=== PATIENT | female | born 1945 | race Caucasian/White ===

== ENCOUNTER 2018-05-03 16:55 | Emergency (ER) | payer OTHER ==
[~2018-05-03] VITALS: Ht 160 cm; Wt 71.2 kg
--- NOTE | 2018-05-03 17:12 | ED CARDIAC/CP/PALPITATIONS ---
History of Present Illness General Chief Complaint: Chest Pain Stated Complaint: CHEST PRESSURE/UPPER BACK DISCOMFORT Source: patient Exam Limitations: no limitations Vital Signs & Intake/Output Vital Signs & Intake/Output Vital Signs Date Time Temp Pulse Resp B/P B/P Pulse O2 O2 Flow FiO2 Mean Ox Delivery Rate 05/03 2138 98.4 86 16 116/80 97 Room Air 05/03 1909 98.7 84 18 117/86 98 Room Air 05/03 1740 Room Air 05/03 1659 97.0 94 18 128/88 97 Room Air ED Intake and Output 05/04 0000 05/03 1200 Intake Total Output Total Balance Patient 157 lb Weight Weight Reported by Patient Measurement Method Allergies Coded Allergies: NO KNOWN ALLERGIES (08/20/13) Triage Note: PT STATES SHE IS HAVING CHEST PAIN AND IT HAS BEEN FOR A FEW DAYS WHEN SHE TAKES A DEEP BREATH. PT STATES SHE IS NOT COUGHING. PT CALLED HEART AND SHE WAS TOLD TO COME TO ED. PT STATES SHE IS HAVING BACK PAIN ALSO. Triage Nurses Notes Reviewed? yes Onset: Gradual Duration: day(s): Timing: recent history Quality/Severity: burning, pressure Location: substernal Radiation: no radiation HPI: 72yo female with hx of HTN presents to ED complaining of chest discomfort beginning yesterday. Patient reports "heartburn" sensation and chest pressure in substernal location/left chest. There is no radiation of her chest pain. The patient tried aspirin last night which helped her sleep however she woke up this morning with further chest pain. Patient reports history of similar episodes however episodes have never lasted this long in the past. The patient reports stressful situations in her life currently. She states that when she thinks about these stressfull things it worsens her chest pain. The patient denies dizziness, visual changes, headaches, dyspnea, cough, hemoptysis, recent travel/ surgery. The patient has a history of GERD, was formerly on omeprazole however discontinued this med 2 months ago. (Trish COATES,Karissa Webster) Past History Travel History Traveled to [place] past 21 day No Medical History Any Pertinent Medical History? see below for history Neurological: NONE EENT: NONE Cardiovascular: hypertension Respiratory: NONE Gastrointestinal: NONE Hepatic: NONE Renal: NONE Musculoskeletal: NONE Psychiatric: NONE Endocrine: NONE History of MRSA: No History of VRE: No History of CDIFF: No Surgical History Surgical History: non-contributory Psychosocial History Who do you live with Spouse What is your primary language [place] Tobacco Use: Quit >30 days ago ETOH Use: denies use Illicit Drug Use: denies illicit drug use Family History Hx Contributory? No (Karissa Amanda) Review of Systems Review of Systems Constitutional: Reports: no symptoms. EENTM: Reports: no symptoms. Respiratory: Reports: no symptoms. Cardiovascular: Reports: see HPI. GI: Reports: see HPI. Genitourinary: Reports: no symptoms. Musculoskeletal: Reports: no symptoms. Skin: Reports: no symptoms. Neurological/Psychological: Reports: no symptoms. Hematologic/Endocrine: Reports: no symptoms. Immunologic/Allergic: Reports: no symptoms. All Other Systems: Reviewed and Negative (Karissa Amanda) Physical Exam Physical Exam General Appearance: well developed/nourished, no apparent distress, alert, awake Head: atraumatic, normal appearance Eyes: Bilateral: normal appearance. Ears, Nose, Throat: hearing grossly normal Neck: normal inspection, supple, full range of motion Respiratory: normal breath sounds, chest non-tender, no respiratory distress, lungs clear Cardiovascular: regular rate/rhythm, normal peripheral pulses Peripheral Pulses: 2+ radial (R), 2+ radial (L) Gastrointestinal: normal bowel sounds, soft, non-tender, no organomegaly Back: normal inspection, normal range of motion Extremities: normal inspection, normal range of motion Neurologic/Psych: awake, alert, oriented x 3 Skin: intact, normal color, warm/dry Core Measures ACS in differential dx? Yes CVA/TIA Diagnosis No Sepsis Present: No Sepsis Focused Exam Completed? No (Karissa Amanda) Progress Differential Diagnosis: AMI, atrial fibrillation, CHF/pulm edema, costochondritis, hyperventilation, musculoskeletal pain, myocarditis, pericarditis, pneumothorax, pulmonary embolism, unstable angina Plan of Care: Orders Procedure Date/time Status Heart Healthy Diet 05/03 D Active TROPONIN LEVEL 05/03 2005 Complete EKG 05/03 2005 Active Add-on Test (ER Only) 05/03 1739 Active MAGNESIUM 05/03 1706 Complete TROPONIN LEVEL 05/03 1658 Complete COMPREHENSIVE METABOLIC PANEL 05/03 1658 Complete CBC WITHOUT DIFFERENTIAL 05/03 1658 Complete EKG 05/03 1656 Active Laboratory Tests 05/03/182004: Troponin I < 0.01 05/03/18 1706: Anion Gap 8, Estimated GFR > 60, BUN/Creatinine Ratio 20.0, Glucose 87, Calcium 10.7 H, Magnesium 1.7, Total Bilirubin 0.4, AST 17, ALT 32, Alkaline Phosphatase 77, Troponin I < 0.01, Total Protein 6.4, Albumin 3.8, Globulin 2.6, Albumin/Globulin Ratio 1.5, CBC w Diff NO MAN DIFF REQ, RBC 4.11 L, MCV 84.9, MCH 27.9, MCHC 32.8 L, RDW 15.3 H, MPV 8.3, Gran % 47.5, Lymphocytes % 40.9, Monocytes % 8.8, Eosinophils % 1.8, Basophils % 1.0, Absolute Granulocytes 2.2, Absolute Lymphocytes 1.9, Absolute Monocytes 0.4, Absolute Eosinophils 0.1, Absolute Basophils 0 Chest x-ray shows no acute findings. Patient's EKG is stable compared to previous study in 2007. No ischemic changes. Initial troponin enzyme is negative. Given the patient's age pain repeat EKG and troponin. Repeat EKG is stable, second troponin is negative. Based on these findings there is low suspicion for acute coronary syndrome. The patient's chest pain is atypical, intermittent for the past 2 days and worse with stressful situations. Patient has no associated dyspnea. Diagnosis of pulmonary embolism was considered however no hypoxia or dyspnea, this diagnosis is less likely. Patient to follow up with her case work aide. I recommended patient restart her omeprazole however she wishes to follow-up with case work aide first. The patient is in no acute distress, vital signs are stable, she is nontoxic-appearing. The patient agrees with the plan of care. The patient was discussed with Dr. Leyva who agrees with this plan. Diagnostic Imaging: Viewed by Me: Radiology Read. Discussed w/RAD: Radiology Read. CXR Impression: PATIENT: STANFORD RANGEL PRESENT AGE: 72 PATIENT ACCOUNT NO: [id number] : 46 LOCATION: [facility] ORDERING PHYSICIAN: Ron COATES SERVICE DATE: 05/03/18 EXAM TYPE: RAD - XRY-CHEST XRAY, TWO VIEWS EXAMINATION: XR CHEST CLINICAL INFORMATION: Chest pain. COMPARISON: Chest x-ray 07/07/2008. TECHNIQUE: Frontal and lateral views of the chest were obtained. FINDINGS: The lung capone are hyperexpanded with flattening of the hemidiaphragms and retrosternal air trapping, consistent with COPD. There are linear opacities at the left base consistent with atelectasis. The cardiac silhouette is normal. The aortic arch is calcified and unfolded. There are no pleural effusions or pneumothorax. The central pulmonary vasculature is normal. The hilar regions appear normal. There is a levoscoliosis in the thoracolumbar region. There are mild multilevel degenerative changes in the thoracic spine. IMPRESSION: 1. There are no acute cardiopulmonary findings. DICTATED BY: Trevor Peñaloza MD DATE/TIME DICTATED:05/03/181822 PRODUCT ACCOUNTANT:GEE DATE/TIME TRANSCRIBED:05/03/181822 CONFIDENTIAL, DO NOT COPY WITHOUT APPROPRIATE AUTHORIZATION. <Electronically signed in Other Vendor System> SIGNED BY: Trevor Peñaloza MD 05/03/181827 Initial ED EKG: sinus rhythm @85bpm,nonspecific ST changes Prior EKG: unchanged (07/08/08) (Trish COATES,Karissa Webster) Departure Departure Disposition: HOME OR SELF CARE Condition: Stable Clinical Impression Primary Impression: Chest pain Qualifiers: Chest pain type: unspecified Qualified Code: R07.9 - Chest pain, unspecified Referrals: Evelyn Jackson MD (PCP/Family) Nathalie Mckeon MD Additional Instructions: Follow-up with Dr. Mckeon as discussed. Return with worsening symptoms or concerns. Please note that there might be incidental findings in your evaluation that are unrelated to the current emergency department visit. Please notify your primary care doctor about this emergency department visit in order to obtain and review all of the testing performed so that these incidental findings can be monitored as needed. If you had an x-ray performed, please understand that some fractures may not be seen on the initial set of x-rays. If your symptoms persist you might need a repeat set of x-rays to check for such a fracture. If you had a laceration evaluated, please understand that foreign bodies such as glass or wood may not be visible to the naked eye or on plain x-rays. If the wound becomes red, swollen, increasingly more painful or if there is any drainage from the wound, please have it reevaluated by a physician for the possibility of a retained foreign body. If you're unable to follow up as outlined in the discharge instructions please return to the emergency department. Thank you for choosing the [facility] Emergency Department for your care. It was a pleasure to serve you today. Departure Forms: Customer Survey General Discharge Information (Trish COATES,Karissa Webster) PA/CUSTOMER LOGISTICS MANAGER Co-Sign Statement Statement: ED Attending supervision documentation- [x] I saw and evaluated the patient. I have also reviewed all the pertinent lab results and diagnostic results. I agree with the findings and the plan of care as documented in the PA's/CUSTOMER LOGISTICS MANAGER's documentation. Patient presents for evaluation of chest pain. Physical examination reveals an unremarkable heart and lung examination. [] I have reviewed the ED Record and agree with the PA's/CUSTOMER LOGISTICS MANAGER's documentation. [] Additions or exceptions (if any) to the PAs/CUSTOMER LOGISTICS MANAGER's note and plan are summarized below: [] (Autumn SCOTT,Jorge Louis) Critical Care Note Critical Care Note Critical Care Time: non-applicable (Karissa mAanda)
[2018-05-03 17:18] LABS: ABSOLUTE BASOPHIL COUNT 0 /CUMM (0.0-0.2); ABSOLUTE EOSINOPHIL COUNT 0.1 /CUMM (0.0-0.7); ABSOLUTE GRANULOCYTE CT 2.2 /CUMM (1.4-6.5); ABSOLUTE LYMPH COUNT 1.9 /CUMM (1.2-3.4); ABSOLUTE MONOCYTE COUNT 0.4 /CUMM (0.10-0.60); EOSINOPHIL % 1.8 % (0-5); GRANULOCYTE % 47.5 % (42.2-75.2); HEMATOCRIT 34.9 % (37-47); MEAN CORPUSCULAR HGB 27.9 PG (27.0-31.0); MEAN CORPUSCULAR HGB CONC 32.8 G/DL (33.0-37.0); MEAN CORPUSCULAR VOLUME 84.9 FL (81.0-99.0); MEAN PLATELET VOLUME 8.3 FL (7.4-10.4); PLATELET COUNT 249 /CUMM (130-400); RBC DISTRIBUTION WIDTH 15.3 % (11.5-14.5); RED BLOOD CELL CT 4.11 /CUMM (4.20-5.40); WHITE BLOOD CELL COUNT 4.5 /CUMM (4.8-10.8)
--- NOTE | 2018-05-03 18:28 | RADIOLOGY REPORT ---
EXAMINATION: XR CHEST CLINICAL INFORMATION: Chest pain. COMPARISON: Chest x-ray 07/07/2008. TECHNIQUE: Frontal and lateral views of the chest were obtained. FINDINGS: The lung capone are hyperexpanded with flattening of the hemidiaphragms and retrosternal air trapping, consistent with COPD. There are linear opacities at the left base consistent with atelectasis. The cardiac silhouette is normal. The aortic arch is calcified and unfolded. There are no pleural effusions or pneumothorax. The central pulmonary vasculature is normal. The hilar regions appear normal. There is a levoscoliosis in the thoracolumbar region. There are mild multilevel degenerative changes in the thoracic spine. IMPRESSION: 1. There are no acute cardiopulmonary findings.
[2018-05-03 21:38] VITALS: BP 116/80
== END 2018-05-03 21:46 ==
LOC: ERH 16:55
PROVIDERS: Physician Assistant Medical
DX: R07.89 Other chest pain (principal)
CPT/HCPCS: 71046; 93005; 93010